=== PATIENT | male | born 1960 | race African-American/Black ===

== ENCOUNTER 2022-11-30 13:31 | Inpatient (IN) | payer BC ==
[~2022-11-30] VITALS: Ht 175.3 cm; Wt 79.6 kg
[2022-11-30] MEDS ORDERED: TETANUS, DIPHTHERIA, PERTUSSIS VAC/PF 0.5ML (>10YR OLD) IM ONE (14:30)
[2022-11-30] MEDS ORDERED: LIDOCAINE HCL/EPINEPHRINE 1%-EPI 1:100,000 20 ML VIAL INFIL ONE (14:30)
[2022-11-30] MEDS ORDERED: LACTATED RINGERS 1,000 ML IV SCH (14:30)
[2022-11-30] MEDS ORDERED: ACETAMINOPHEN 325MG TABLET PO ONE (14:30)
[2022-11-30 14:46] LABS: HEMATOCRIT. 37.8 % (42.0-52.0); HEMOGLOBIN. 12.8 g/dL (14.0-18.0); MEAN CORPUSCULAR HEMOGLOBIN 29.2 pg (28.0-32.0); MEAN CORPUSCULAR HGB CONC 33.7 g/dL (31.0-37.0); MEAN CORPUSCULAR VOLUME 86.5 fL (80.0-94.0); MEAN PLATELET VOLUME 8.3 fl (7.4-10.4); PLATELET 125 x1000/uL (130-400); RED BLOOD CELL COUNT 4.37 mill/uL (4.7-6.1); RED CELL DISTRIBUTION WIDTH 14.6 % (11.6-14.6); WHITE BLOOD COUNT 14.7 x1000/uL (4.5-11.0)
[2022-11-30 14:47] LABS: DIFFERENTIAL COMMENT 1
[2022-11-30 14:57] LABS: CHLORIDE 105 mEq/L (98-107); INDEX HEMOLYSI 1 (1-3); INDEX ICTERIC 1 (1-4); INDEX LIPEMIC 1 (1-3); POTASSIUM 3.8 mEq/L (3.5-5.1); SODIUM 136 mEq/L (136-145)
[2022-11-30] MEDS ORDERED: LIDOCAINE 1%/EPI 1:200,000 10 ML VIAL IJ NR (15:00)
[2022-11-30 15:11] LABS: LACTIC ACID 2.4 mmol/L (0.4-2.0)
[2022-11-30 15:16] LABS: ALANINE AMINOTRANSFERASE 34 IU/L (13-61); ALBUMIN 3.3 g/dL (3.4-5.0); ASPARTATE AMINOTRANSFERASE 28 IU/L (15-37); CALCIUM 9.3 mg/dL (8.5-10.1); CARBON DIOXIDE 24 mEq/L (21-32); CREATININE 1.4 mg/dL (0.6-1.3); GLUCOSE 163 mg/dL (70-105); PROTEIN TOTAL 8.5 g/dL (6.0-8.3); TROPONIN I HIGH SENSITIVITY 38 ng/L (<78); UREA NITROGEN BLOOD 18 mg/dL (7-21)
[2022-11-30] MEDS ORDERED: VANCOMYCIN 1G PREMIX 200 ML IV SCH ×2 (16:15)
[2022-11-30] MEDS ORDERED: LACTATED RINGERS IV SCH (16:15)
[2022-11-30] MEDS ORDERED: CEFEPIME 2,000 MG in DEXT 5% WATER 100 ML IV SCH (16:15)
[2022-11-30 17:05] LABS: HYPOCHROMASIA 1+; PLATELET ESTIMATE SLIGHTLY DECREASED
[2022-11-30 17:06] LABS: ANISOCYTOSIS 1+
[2022-11-30 17:44] LABS: TROPONIN I HIGH SENSITIVITY 133 ng/L (<78)
[2022-11-30] MEDS ORDERED: LACTATED RINGERS 500 ML IV SCH (18:00)
[2022-11-30] MEDS ORDERED: ACETAMINOPHEN 325MG TABLET PO PRN ×2 (18:30)
[2022-11-30] MEDS ORDERED: ONDANSETRON HCL 4MG/2ML INJ IV PRN (18:30)
[2022-11-30] MEDS ORDERED: CLONIDINE 0.1MG TABLET PO PRN (18:30)
[2022-11-30] MEDS ORDERED: MAGNESIUM/ALUMINUM HYDROXIDE/SIMETHICONE 30ML UDC PO PRN (18:30)
[2022-11-30] MEDS ORDERED: IPRATROPIUM/ALBUTEROL 0.5-3(2.5)MG/3ML NEB NEB PRN (18:30)
[2022-11-30] MEDS: SODIUM CHLORIDE 0.9% 1,000 ML IV SCH ×2 (18:30→19:00)
[2022-11-30] MEDS ORDERED: CEFTRIAXONE 1GM PREMIX 50 ML IV NR (18:45)
[2022-11-30 22:19] VITALS: BP 125/73; PULSE 87; RESP 17; TEMP 100.2
[2022-11-30] MEDS ORDERED: TRAZ-251 PO (22:54)
[2022-12-01] VITALS (7 sets, daily range): BP systolic 119–141; BP diastolic 57–86; PULSE 77–97; RESP 16–20; TEMP 97.7–100.2
[2022-12-01] MEDS: TRAZODONE HCL 50MG TABLET PO SCH ×2 (00:10→20:38)
[2022-12-01] MEDS: ENOXAPARIN 40MG/0.4ML SYR SUBCUT SCH ×2 (00:10→20:38)
[2022-12-01 00:18] LABS: CLARITY URINE CLEAR (CLEAR); COLOR URINE YELLOW (YELLOW); GLUCOSE URINE NEGATIVE (NEGATIVE); KETONES URINE 1+ (NEGATIVE); LEUKOCYTE ESTERASE URINE 2+ (NEGATIVE); NITRITE URINE NEGATIVE (NEGATIVE); OCCULT BLOOD URINE 1+ (NEGATIVE); PH URINE 6.5 (4.5-8.0); PROTEIN URINE 1+ (NEGATIVE); SPECIFIC GRAVITY URINE 1.012 (1.005-1.030)
[2022-12-01 02:12] LABS: CREATINE KINASE MB FRACTION 4.5 ng/mL (0.5-3.6)
[2022-12-01 03:03] LABS: WBC URINE TNTC /hpf (0-2)
[2022-12-01 03:05] LABS: SQUAMOUS EPITHELIAL CELL URINE NONE SEEN /lpf (RARE/1+)
[2022-12-01 03:06] LABS: BACTERIA URINE NONE SEEN
[2022-12-01] MEDS: SODIUM CHLORIDE 0.9% 1,000 ML IV SCH ×2 (05:09→20:39)
[2022-12-01 08:31] LABS: BASOPHILS % 0.2 % (0.0-2.0); EOSINOPHILS % 0.2 % (0.0-5.0); HEMATOCRIT. 36.1 % (42.0-52.0); HEMOGLOBIN. 12.2 g/dL (14.0-18.0); LYMPHOCYTES % 9.2 % (20.0-50.0); MEAN CORPUSCULAR HEMOGLOBIN 29.7 pg (28.0-32.0); MEAN CORPUSCULAR HGB CONC 33.7 g/dL (31.0-37.0); MEAN CORPUSCULAR VOLUME 88.1 fL (80.0-94.0); MEAN PLATELET VOLUME 8.9 fl (7.4-10.4); MONOCYTES % 4.1 % (2.0-8.0); NEUTROPHILS % 86.3 % (40.0-76.0); PLATELET 115 x1000/uL (130-400); RED CELL DISTRIBUTION WIDTH 14.2 % (11.6-14.6); WHITE BLOOD COUNT 12.2 x1000/uL (4.5-11.0)
[2022-12-01 09:10] LABS: CHLORIDE 106 mEq/L (98-107); INDEX HEMOLYSI 1 (1-3); INDEX ICTERIC 1 (1-4); INDEX LIPEMIC 1 (1-3); POTASSIUM 3.8 mEq/L (3.5-5.1); SODIUM 137 mEq/L (136-145)
[2022-12-01 09:30] LABS: CALCIUM 9.2 mg/dL (8.5-10.1); CARBON DIOXIDE 27 mEq/L (21-32); CHOLESTEROL 123 mg/dL (<200); CREATINE KINASE 2680 IU/L (39-308); CREATINE KINASE MB FRACTION 3.9 ng/mL (0.5-3.6); GLUCOSE 146 mg/dL (70-105); HDL CHOLESTEROL 41 mg/dL (40-59); LDL CHOLESTEROL 63 mg/dL (5-100); PHOSPHORUS 2.2 mg/dL (2.5-4.9); T4 FREE 1.13 ng/dL (0.76-1.46); TRIGLYCERIDE 117 mg/dL (0-150); TROPONIN I HIGH SENSITIVITY 60 ng/L (<78); UREA NITROGEN BLOOD 13 mg/dL (7-21)
[2022-12-01 10:55] LABS: CREATINE KINASE MB FRACTION 4.1 ng/mL (0.5-3.6)
[2022-12-01] MEDS ORDERED: CEFTRIAXONE 1,000 MG in DEXTROSE 5% WATER 50 ML IV SCH (18:00)
[2022-12-02] VITALS: BP 92/47; PULSE 83; RESP 16; TEMP 97.8
[2022-12-02 04:00] VITALS: BP_SYST 123; BP_DIAS 71; BP_DIAS 96; PULSE 57; PULSE 71; RESP 14; TEMP 98
[2022-12-02] MEDS: SODIUM CHLORIDE 0.9% 1,000 ML IV SCH (06:23)
[2022-12-02 08:00] VITALS: BP 120/72; PULSE 90; RESP 18; TEMP 98.2
[2022-12-02] MEDS ORDERED: SULF1TAB48 PO (11:49)
[2022-12-02 12:14] VITALS: BP 120/72; PULSE 90; TEMP 98.2; O2SAT 95
== END 2022-12-02 01:18 | disposition home or self-care (01) | DRG 872 ==
LOC: ER 13:31 → EDBEDREQ 17:30 → 8WST 21:18
PROVIDERS: ADMIT Internal Medicine; ATTEND Internal Medicine
PROC: 0HQ1XZZ Repair Face Skin, External Approach (ICD-10-PCS; principal; 2022-11-30)
DX: A41.9 Sepsis, unspecified organism (principal); R35.0 Frequency of micturition; G20.A1 Parkinson's disease without dyskinesia, without mention of fluctuations; S01.81XA Laceration without foreign body of other part of head, initial encounter; Z79.899 Other long term (current) drug therapy; W01.0XXA Fall on same level from slipping, tripping and stumbling without subsequent striking against object, initial encounter; Y93.01 Activity, walking, marching and hiking; Y92.89 Other specified places as the place of occurrence of the external cause; Y99.8 Other external cause status
CPT/HCPCS: 36415; 71045; 80048; 80053; 80061; 81003; 82550; 82553; 83036; 83605; 83735; 84100; 84439; 84443; 84484; 85025; 93005; 97162; 97166; 99291; J0692; J0696; J1650; J3370; J3490; J7060